=== PATIENT | male | born 1955 | race Caucasian/White ===

== ENCOUNTER 2018-07-19 07:34 | Outpatient (CLI) | payer BC ==
[~2018-07-19] VITALS: Ht 180.3 cm; Wt 114.1 kg
--- NOTE | ~2018-07-19 | OP ---
PATIENT NAME: GABINO CHENEY MEDICAL RECORD: [id number] :59 LOCATION:D.CAT ADMISSION DATE: SURGEON: ELMA LUTHER MD DATE OF OPERATION: 07/19/2018 PROCEDURES: 1. Left heart catheterization. 2. Selective coronary angiography. 3. Left ventriculogram. INDICATIONS: Chest pain, coronary disease, previous PTCA and stent. PROCEDURE IN DETAIL: After informed consent was obtained and after detailed description of risks and benefits as well as alternative therapies, the patient elected to proceed with angiogram and heart catheterization. The right femoral area was prepped and draped in normal sterile fashion. Right femoral artery was cannulated via modified Seldinger technique with placement of 5-Kiswahili sheath. All catheters were exchanged through this sheath. FINDINGS: The left ventriculogram was performed in standard 30-degree IRIZARRY view, reveals good cardiac wall motion throughout all segments. Overall ejection fraction is estimated at 60%. SELECTIVE CORONARY ANGIOGRAPHY: 1. Left main is with no significant angiographic disease. 2. Left anterior descending has previously placed stents. These are widely patent with no significant restenosis. No disease else bee of significance throughout the LAD or its branches. 3. The left circumflex has moderate irregularities. Previously placed stents have no significant restenosis. 4. The right coronary has moderate irregularities. Previously placed stents have no significant restenosis. OVERALL IMPRESSION: No restenosis of any of the previously placed stents. Moderate irregularities else bee, but no flow-limiting stenosis. Continue medical management of coronary disease and cardiac risk factors. TRANSINT:[id number] Voice Confirmation ID: [id number] DOCUMENT ID: [id number] ELMA LUTHER MD at 1914 CC: [id number] DICTATION DATE: 07/19/18 0956 MARKETING INFORMATION MANAGER: 07/19/18 1258 DEP CLI 07/19/18 [facility] [address] [id number]
--- NOTE | ~2018-07-19 | HEMODYNAMI ---
PATIENT:GABINO CHENEY MEDICAL RECORD: [id number] : 59 LOCATION:[facility] ADMISSION DATE: 07/19/18 Generatedon:07/19/20189:55 Patient name: GABINO CHENEY Patient #: [id number] SSN: : 1955 Date of study: 07/19/2018 Page: Of Hemodynamic Procedure Report Patient Data Patient Demographics Procedure consent was obtained First Name: GABINO Gender: Male Last Name: SHRAVAN : 1955 Middle Initial: W Age: 62 year(s) Patient #: [id number] Race: Additional ID: [id number] Contact details Address: [address] [place] [address] State: [place] City: [facility] Zip code: [address] Past Medical History Allergies: No known allergies Admission Admission Data Admission Date: 07/19/2018 Admission Time: 7:34 Height (in.): 71 BSA: 2.32 (m2) Height (cm.): 180.34 BMI: 35.01 (kg/m2) Weight (lbs.): 251 Weight (kg.): 113.85 Lab Results Lab Result Date: 07/19/2018 Lab Result Time: 0:00 Biochemistry Name Units Result Min Max BUN mg/dl 16 --(---*)-- 7 18 Creatinine mg/dl 1 --(--*-)-- 0.6 1.3 CBC Name Units Result Min Max Hemoglobin g/dl 14.1 --(*---)-- 13.5 17.5 Procedure Procedure Types Cath Procedure Diagnostic Procedure C [facility] w/Coronaries Procedure Description Procedure Date Procedure Date: 07/19/2018 Procedure Start Time: 9:44 Procedure End Time: 9:52 Procedure Staff Name Function Nilesh Benjamin MD Performing Physician Poppy Norton RT Monitor Kaci Guzman RT Scrub Gogo Lopez RN Nurse Procedure Data Cath Procedure Fluoroscopy Diagnostic fluoroscopy Total fluoroscopy Time: 0.9 time: 0.9 min min Diagnostic fluoroscopy Total fluoroscopy dose: dose: 1017 mGy 1017 mGy Contrast Material Contrast Material Type Amount (ml) Isovue 300 43 Entry Location Entry Primary Successful Side Size Upsize Upsize Entry Closure Succes sful Closure Location (Fr) 1 (Fr) 2 (Fr) Remarks Device Remarks Femoral Right 5 Fr Exoseal artery Estimated blood loss: 10 ml Diagnostic catheters Device Type Used For End Catheter Placement Medtronic Dexterity 5Fr Pigtail catheter(NO COST SUPPLY) Medtronic Dexterity 5Fr Procedure JL 4.0 catheter (NO COST SUPPLY) Medtronic Dexterity 5Fr Procedure 3DRC catheter (NO COST SUPPLY) Procedure Complications No complications Procedure Medications Medication Administration Route Dosage 0.9% NaCl I.V. 100 ml/hr Oxygen etCO2 Nasal cannula 2 l/min Lidocaine 2% added to field 20 Heparin Flush Bag added to field 2 bags (1000units/500ml NS) Versed I.V. 2 mg Fentanyl I.V. 50 mcg Versed I.V. 2 mg Fentanyl I.V. 25 mcg Hemodynamics Rest BSA: 2.32 (m2) O2 Consumption: Estimated: 271 (ml/min) O2 Consumption indexed: E stimated:116.81 (ml/min/m) Heart Rate: 68 (bpm) Pressure Samples Time Site Value (mmHg) Purpose Heart Use Rate(bpm) 9:45 LV 88/13,35 Snapshot 66 Gradients Valve Time Site Site Mean SEP/DFP Peak To Heart Use 1 2 (mmHg) (sec/min) Peak Rate (mmHg) (bpm) Aortic 9:46 LV AO 58 Snapshots Pre Cath Intra NCS Post Cath Vital Signs Time Heart Resp SPO2 etCO2 NIBP (mmHg) Rhythm Pain Sedation Rate (ipm) (%) (mmHg) Status Level (bpm) 9:23:19 65 17 97 37.8 110/76(92) NSR 0 (11) 10(A) , No pain 9:27:31 64 15 99 31.8 116/74(91) NSR 0 (11) 10(A) , No pain 9:31:41 76 11 97 28.7 127/87(101) NSR 0 (11) 10(A) , No pain 9:35:52 71 12 96 34.7 123/79(100) NSR 0 (11) 10(A) , No pain 9:40:04 72 13 97 32.5 117/77(95) NSR 0 (11) 10(A) , No pain 9:44:16 70 12 98 25 117/78(93) NSR 0 (11) 10(A) , No pain 9:48:31 71 11 97 28.7 114/73(98) NSR 0 (11) 9(A) , No pain 9:52:42 73 12 97 26.4 122/74(91) NSR 0 (11) 10(A) , No pain Medications Time Medication Route Dose Verified Delivered Reason Notes Effe ctiveness by by 9:27:06 0.9% NaCl I.V. 100 Nilesh Gogo used for ml/hr Sourav Lopez bird cage assembler 9:27:13 Oxygen etCO2 2 Nilesh Gogo used for Nasal l/min Sourav Lopez procedure cannula RN 9:27:21 Lidocaine 2% added 20ml Nilesh Nilesh for local to vial Sourav Benjamin MD anesthetic field 9:27:29 Heparin Flush added 2 Nilesh Nilesh used for Bag to bags Sourav Benjamin MD procedure (1000units/500ml field NS) 9:44:30 Versed I.V. 2 mg Nilesh Gogo for Sourav Lopez sedation RN 9:44:47 Fentanyl I.V. 50 Nilesh Gogo for mcg Sourav Lopez sedation RN 9:47:57 Versed I.V. 2 mg Nilseh Gogo for Sourav Lopez sedation RN 9:48:03 Fentanyl I.V. 25 Nilesh Gogo for mcg Sourav Lopez sedation coupon redemption clerk Log Time Note 9:00:57 Signed procedure consent form obtained from patient. 9:00:58 Time tracking: Regular hours (M-F 7:00 - 5:00) 9:01:02 Plan of Care:Hemodynamics will remain stable., Cardiac rhythm will remain stable., Comfort level will be maintained., Respiratory function will remain adequate., Patient/ family verbilizes understanding of procedure., Procedure tolerated without complication., Recovers from procedure without complications.. 9:01:05 Diagnostic Cath status Elective 9:01:12 H&P Date Dictated: 07/18/2018 Within 30 days and on chart., H&P Addendum completed by physician on day of procedure. (MUST COMPLETE FOR ALL OUTPATIENTS). 9:01:18 Patient allergic to No known allergies 9:01:33 Patient Height : 71 inches 9:01:36 Patient Weight : 251 lbs 9:03:19 Lab Result : Creatinine 1 mg/dl 9::19 Lab Result : BUN 16 mg/dl 9::19 Lab Result : Hemoglobin 14.1 g/dl 9:16:04 Patient received from Pre/Post Procedure Room to CCL 1 Alert and oriented. Tansferred to table in Supine position. 9:16:05 Warm blankets applied, and matthias hugger turned on for patient comfort. 9:16:06 Correct patient and procedure confirmed by team. 9:16:06 ECG and BP/O2 sat monitors applied to patient. 9:22:14 Vital chart was started 9:27:06 0.9% NaCl 100 ml/hr I.V. was administered by Gogo Lopez RN; used for procedure; 9:27:13 Oxygen 2 l/min etCO2 Nasal cannula was administered by Gogo Lopez RN; used for procedure; 9:27:21 Lidocaine 2% 20ml vial added to field was administered by Nilesh Benjamin MD; for local anesthetic; 9:27:29 Heparin Flush Bag (1000units/500ml NS) 2 bags added to field was administered by Nilesh Benjamin MD; used for procedure; 9:29:45 Baseline sample Acquired. 9:29:51 Rhythm: sinus rhythm 9:29:53 Full Disclosure recording started 9:31:09 Pre-procedure instructions explained to patient. 9:31:11 Family in waiting room. 9:31:13 Patient NPO since Midnight. 9:31:23 Is the patient allergic to Iodine/contrast media? No. 9:31:25 Was the patient premedicated? Yes 9:31:27 Is patient on blood thinner?No 9:31:32 ACC The patient was administered the following blood thiners within the last 24 hours: ACCAspirin 9:31:36 Patient diabetic? Yes. 9:31:37 If diabetic: On Metformin? No 9:31:46 Snore? Yes 9:31:47 Sleep apnea? Yes 9:31:49 Deviated septum? No 9:31:50 Opens mouth fully? Yes 9:31:52 Sticks out tongue? Yes 9:31:59 Dentures? No ? 9:32:04 Patient pain scale 0/10 ?. 9:32:10 IV patent on arrival in left forearm with 0.9% NaCl at [facility]. 9:32:15 Lab results completed and on chart. 9:32:22 Right groin area was prepped with chlora-prep and draped in sterile fashion 9:32:25 Alarms reviewed by R. N. 9:32:26 Sharps counted by scrub and verified by R.N. 9:32:27 Physician paged 9:32:31 Use device set Femoral Dx 9:32:33 ACIST Syringe (17547) opened to sterile field. 9:32:34 Bag Decanter (2002S) opened to sterile field. 9:32:35 Medline Cath Pack ([id number]) opened to sterile field. 9:32:37 DIAGNOSTIC WIRE .035 260cm J wire (064870) opened to sterile field. 9:32:39 ACIST Hand Control (04827) opened to sterile field. 9:32:39 ACIST Manifold (26916) opened to sterile field. 9:32:41 Tegaderm 4 x 4 (1626W) opened to sterile field. 9:32:42 PERCUTANEOUS ENTRY 19GA needle opened to sterile field. 9:32:44 SHEATH Prelude 5Fr 0.035 (OLX-2C-70-035) opened to sterile field. 9:37:03 Zero performed for pressure channel P1 9:42:51 Physician arrived 9:42:51 --------ALL STOP TIME OUT------ 9:42:52 Final Timeout: patient, procedure, and site verified with staff and physician. All members of the team are in agreement. 9:42:54 Right groin site verified by team. 9:42:58 Physical assessment completed. ASA score P 2 - A patient with mild systemic disease as per Nilesh Benjamin MD. 9:43:02 Sedation plan: IV Moderate Sedation Medication:Versed, Fentanyl 9:44:25 Procedure started. 9:44:30 Versed 2 mg I.V. was administered by Gogo Lopez RN; for sedation; 9:44:47 Fentanyl 50 mcg I.V. was administered by Gogo Lopez RN; for sedation; 9:44:50 Local anesthetic to right femoral artery with Lidocaine 2% by Nilesh Benjamin MD.INITIAL ACCESS ONLY 9:45:00 A 5 Fr sheath was inserted into the Right Femoral artery 9:45:33 A Medtronic Dexterity 5Fr Pigtail catheter(NO COST SUPPLY) was advanced over the wire and used for . 9:45:37 LV gram done using IRIZARRY 9:46:00 EF : 60 % 9:46:03 Catheter removed. 9:46:10 A Medtronic Dexterity 5Fr JL 4.0 catheter (NO COST SUPPLY) was advanced over the wire and used for Procedure. 9:46:46 LCA angiography performed. 9:47:43 Catheter removed. 9:47:57 Versed 2 mg I.V. was administered by Gogo Lopez RN; for sedation; 9:48:03 Fentanyl 25 mcg I.V. was administered by Gogo Lopez RN; for sedation; 9:48:07 A Medtronic Dexterity 5Fr 3DRC catheter (NO COST SUPPLY) was advanced over the wire and used for Procedure. 9:48:17 RCA angiography performed. 9:48:50 Catheter removed. 9:49:15 EXOSEAL 5Fr (EX500) opened to sterile field. 9:49:52 Sheath removed intact; hemostasis achieved with Exoseal to the Right Femoral artery. 9:50:05 Procedure ended.(Physican Out) 9:50:24 Fluoroscopy time 00.90 minutes. 9:50:30 Fluoroscopy dose: 1017 mGy 9:50:30 Flurop Dose total: 1017 9:50:34 Contrast amount:Isovue 300 43ml. 9:50:36 Sharps counted by scrub and verified by R.N. 9:50:56 Insertion/operative site no bleeding no hematoma. 9:51:01 Post-op/insertion site Right Femoral artery dressed using a 4 x 4 and Tegaderm. 9:51:05 Post right femoral artery:stable 9:51:10 Post Procedure Pulses reassessed and unchanged 9:51:14 Post-procedure physical assessment completed. ASA score P 2 - A patient with mild systemic disease as per Nilesh Benjamin MD. 9:51:32 Post procedure rhythm: unchanged. 9:51:37 Estimated blood loss: 10 ml 9:51:40 Post procedure instruction explained to patient.Patient verbalizes understanding. 9:51:50 Procedure and supply charges have been captured, reviewed, submitted and are correct. 9:52:39 Procedure Complication : No complications 9:52:43 Vital chart was stopped 9:52:44 See physician's report for complete and final results. 9:52:46 Report given to Pre/Post Procedure Room. 9:52:50 Patient transfered to Pre/Post Procedure Room with Stretcher. 9:52:53 Procedure ended. 9:52:53 Full Disclosure recording stopped 9:52:56 End room use (Document Last) Device Usage Item Name Manufacture Quantity Catalog Number Hospital Part Current M inimal Lot# / Charge Number Stock Stock Serial# Code ACIST Syringe Acist 1 66650 165475 733880 [id number] 2 0 (02211) [employer] Bag Decanter Microtek 1 2001S [id number] 91499 837356 5 () Medical Inc. Medline Cath Medline 1 [id number] 934602 91393 857001 5 Pack ([id number]) DIAGNOSTIC WIRE St Kev 1 116658 901339 469158 670173 3 0 .035 260cm J wire (054232) ACIST Hand Acist 1 76449 091604 277933 863816 5 Control (74161) [employer] ACIST Manifold Acist 1 75239 239866 066546 131631 5 (70815) [employer] Inc Tegaderm 4 x 4 3M 1 1626W 455759 821845 408489 5 (1626W) PERCUTANEOUS Cook Medical 1 [id number] 587348 812674 5 ENTRY 19GA needle SHEATH Prelude Merit 1 [id number] 287837 067807 684077 5 5Fr 0.035 Medical ([id number]-9I-57-035) Medtronic Medtronic 1 [id number] 101117 012057 5 Dexterity 5Fr Pigtail catheter(NO COST SUPPLY) Medtronic Medtronic 1 [id number] 773703 989805 5 Dexterity 5Fr JL 4.0 catheter (NO COST SUPPLY) Medtronic Medtronic 1 [id number] 629584 138863 5 Dexterity 5Fr 3DRC catheter (NO COST SUPPLY) EXOSEAL 5Fr Cardinal 1 EX500 783491 092254 195681 1 0 (EX500) Health Signature Audit [place] Stage Time Signature Unsigned Intra-Procedure 07/19/2018 Poppy Norton 9:55:04 AM RT(R) Signatures Monitor : Poppy Norton Signature : RT Date : Time : [facility] [address] [place] [address]
[~2018-07-19 07:34] MED LIST: BAYER CHEWABLE81 MG PO; CELEXA40 MG PO; DAYPRO600 MG PO; FOLTX TABLET1 EACH PO; GLIMEPIRIDE4 MG PO; HYDROCODONE-APA1 TAB PO; HYDROXYZINE HCL50 MG PO; INVOKANA300 MG PO; K-PHOS ORIGINA500 MG PO; LANOXIN125 MCG PO; LIPITOR20 MG PO; NEURONTIN 300300 MG PO; PLAVIX75 MG PO; TOPROL XL25 MG; [UNRECOGNIZED DRUG - OTHER]
[2018-07-19] MEDS ORDERED: TRESIBA FL100 UNIT/1 SC (07:51)
[2018-07-19 08:09] VITALS: BP 157/41; Ht 180.3 cm; Wt 114.1 kg
[2018-07-19 08:23] LABS: BASOPHILS 0.2 % (0-2); EOSINOPHILS 2.2 % (0-7); HEMATOCRIT 40.8 % (42.0-54.0); HEMOGLOBIN 14.1 g/dL (13.5-17.5); IMMATURE GRANULOCYTES 0.5 % (0-5); LYMPHOCYTES 23.7 % (15-50); MCH 30.8 pg (26.0-34.0); MCHC 34.6 g/dL (31.0-37.0); MCV 89.1 fL (80.0-100.0); MONOCYTES 5.4 % (2-11); RBC 4.58 10x6/uL (4.20-6.10); RDW 12.9 % (11.5-14.5); WBC 13.3 10x3/uL (4.8-10.8)
[2018-07-19 08:29] LABS: CALC OSMOLALITY 281 mosm/kg (275-300); CALCIUM 8.9 mg/dL (8.5-10.1); CARBON DIOXIDE 28.4 mmol/L (21.0-32.0); CHLORIDE - SERUM 103 mmol/L (98-107); GLUCOSE 139 mg/dL (74-106); POTASSIUM - SERUM 3.8 mmol/L (3.5-5.1); SODIUM 140 mmol/L (136-145); UREA NITROGEN 16 mg/dL (7-18); eGFR NON AFRICAN AMERICAN 81 mL/min (90-120)
[2018-07-19 08:31] LABS: PLATELET COUNT 220 10x3/uL (130-400)
== END 2018-07-19 12:00 | disposition home or self-care (01) ==
LOC: D.CATH 07:34
PROVIDERS: Internal Medicine Interventional Cardiology
DX: I25.10 Atherosclerotic heart disease of native coronary artery without angina pectoris (principal); I20.9 Angina pectoris, unspecified; R06.02 Shortness of breath